=== PATIENT | male | born 1965 | race Caucasian/White ===

== ENCOUNTER 2022-03-18 13:15 | Emergency (ER) | payer MEDICAID ==
[~2022-03-18] VITALS: Ht 190.5 cm; Wt 129.0 kg
[2022-03-18] MEDS ORDERED: LIDOCAINE HCL/PF 1% 10 MG/ML 5ML VIAL INFIL ONE (14:30)
[2022-03-18] MEDS ORDERED: BACITRACIN ZINC OINT UDPKT TOP ONE (14:30)
[2022-03-18] MEDS ORDERED: TETANUS, DIPHTHERIA, PERTUSSIS VAC/PF 0.5ML (>10YR OLD) IM ONE (14:30)
[2022-03-18] MEDS ORDERED: HYDROCODONE/ACETAMINOPHEN 5/325MG TABLET PO ONE (14:30)
[2022-03-18 14:40] VITALS: BP 153/81
[2022-03-18] MEDS ORDERED: CEPH500C2 MT (16:37)
[2022-03-18] MEDS ORDERED: IBUP-2029 MT (16:37)
== END 2022-03-18 16:43 | disposition home or self-care (01) ==
LOC: ER 13:15
DX: S61.211A Laceration without foreign body of left index finger without damage to nail, initial encounter (principal); S61.218A Laceration without foreign body of other finger without damage to nail, initial encounter; Z98.890 Other specified postprocedural states; X58.XXXA Exposure to other specified factors, initial encounter; Y93.89 Activity, other specified; Y92.89 Other specified places as the place of occurrence of the external cause; Y99.8 Other external cause status
CPT/HCPCS: 12002; 90471; 90715; 99283; J3490

== ENCOUNTER 2023-05-18 16:00 | Emergency (ER) | payer MEDICAID, OTHER ==
[~2023-05-18] VITALS: Ht 177.8 cm; Wt 105.0 kg
[~2023-05-18 16:00] MED LIST: CEPH500C2 MT; IBUP-2029 MT
[2023-05-18 16:04] VITALS: O2SAT 100
[2023-05-18] MEDS ORDERED: DOXYCYCLINE HYCLATE 100 MG/VIAL IV ONE (17:15)
[2023-05-18] MEDS ORDERED: LEVOFLOXACIN 500MG PREMIX 100 ML IV ONE (17:15)
[2023-05-18] MEDS ORDERED: DOXYCYCLINE 100MG in DEXTROSE 5% WATER 100ML IV NR (17:30)
[2023-05-18 17:58] LABS: BASOPHILS % 0.9 % (0.0-2.0); EOSINOPHILS % 0.7 % (0.0-5.0); HEMATOCRIT. 35.6 % (42.0-52.0); HEMOGLOBIN. 12.3 g/dL (14.0-18.0); LYMPHOCYTES % 30.4 % (20.0-50.0); MEAN CORPUSCULAR HEMOGLOBIN 31.4 pg (28.0-32.0); MEAN CORPUSCULAR HGB CONC 34.5 g/dL (31.0-37.0); MEAN CORPUSCULAR VOLUME 91.1 fL (80.0-94.0); MEAN PLATELET VOLUME 7.7 fl (7.4-10.4); MONOCYTES % 9.8 % (2.0-8.0); NEUTROPHILS % 58.2 % (40.0-76.0); PLATELET 417 x1000/uL (130-400); RED BLOOD CELL COUNT 3.91 mill/uL (4.7-6.1); RED CELL DISTRIBUTION WIDTH 16.5 % (11.6-14.6); WHITE BLOOD COUNT 7.9 x1000/uL (4.5-11.0)
[2023-05-18 18:04] LABS: CHLORIDE 107 mEq/L (98-107); INDEX HEMOLYSI 1 (1-3); INDEX ICTERIC 1 (1-4); INDEX LIPEMIC 1 (1-3); POTASSIUM 3.6 mEq/L (3.5-5.1); SODIUM 137 mEq/L (136-145)
[2023-05-18 18:13] LABS: ALANINE AMINOTRANSFERASE 21 IU/L (13-61); ASPARTATE AMINOTRANSFERASE 18 IU/L (15-37); BILIRUBIN TOTAL 0.6 mg/dL (0.1-1.0); CARBON DIOXIDE 20 mEq/L (21-32); CREATININE 0.7 mg/dL (0.6-1.3); GLUCOSE 87 mg/dL (70-105); PROTEIN TOTAL 8.5 g/dL (6.0-8.3); UREA NITROGEN BLOOD 8 mg/dL (7-21)
[2023-05-18] MEDS ORDERED: MORPHINE SULFATE 4 MG/ML CPJ (NOT FOR IM USE) IV ONE (18:45)
[2023-05-18 18:54] VITALS: TEMP 98.6
[2023-05-18 19:14] LABS: LACTIC ACID 2.4 mmol/L (0.4-2.0)
[2023-05-19 00:32] VITALS: BP 138/68; PULSE 91; RESP 18
== END 2023-05-19 01:00 | disposition short-term general hospital (02) ==
LOC: ER 16:00
DX: I82.401 Acute embolism and thrombosis of unspecified deep veins of right lower extremity (principal); Z98.890 Other specified postprocedural states; Z88.1 Allergy status to other antibiotic agents; Z90.49 Acquired absence of other specified parts of digestive tract
CPT/HCPCS: 80053; 83605; 85025; 87040; 36415; 93971; 73630; 96365; 96375; 99285; J1956; J3490; J2270; J7060; Z7610 ×4

== ENCOUNTER 2024-01-31 11:43 | Emergency (ER) | payer MEDICAID, OTHER ==
[~2024-01-31] VITALS: Ht 180.3 cm; Wt 91.0 kg
[2024-01-31 11:53] VITALS: TEMP 98.7; O2SAT 100
[2024-01-31] MEDS ORDERED: HYDR-4001 MT (13:47)
[2024-01-31 13:51] VITALS: BP 168/87; PULSE 89; RESP 18
[2024-01-31] MEDS: HYDROCODONE/ACETAMINOPHEN 5/325MG TABLET PO ONE (13:51)
== END 2024-01-31 14:30 | disposition home or self-care (01) ==
LOC: ER 11:47
DX: M79.671 Pain in right foot (principal); Z87.19 Personal history of other diseases of the digestive system; Z90.49 Acquired absence of other specified parts of digestive tract
CPT/HCPCS: 99283